=== PATIENT | female | born 1995 | race Two or more races ===

== ENCOUNTER 2024-05-18 21:22 | Emergency (ER) | payer OTHER ==
[~2024-05-18] VITALS: Ht 157.5 cm; Wt 57.2 kg
[2024-05-18] MEDS ORDERED: PRENATA CHEWAB1 EACH PO (21:31)
[2024-05-18] MEDS ORDERED: CHILDREN'S ASPI81 MG PO (21:31)
[2024-05-18 21:33] VITALS: BP 115/75; O2SAT 98
[2024-05-18] MEDS ORDERED: CEFTRIAXONE SODIUM 1,000 MG VIAL IM ONE (23:45)
[2024-05-19] MEDS ORDERED: AMOX-CLAV 875-1 EACH PO (00:12)
[2024-05-19] MEDS ORDERED: LIDOCAINE HCL 1% 10ML VIAL ONE (00:18)
== END 2024-05-19 00:29 | disposition home or self-care (01) ==
LOC: ER 21:24
DX: O26.891 Other specified pregnancy related conditions, first trimester (principal); Z3A.01 Less than 8 weeks gestation of pregnancy; S90.811A Abrasion, right foot, initial encounter; W54.0XXA Bitten by dog, initial encounter; Y93.89 Activity, other specified; Y92.89 Other specified places as the place of occurrence of the external cause

== ENCOUNTER 2024-09-28 11:12 | Outpatient (CLI) | payer OTHER ==
[~2024-09-28 11:12] MED LIST: AMOX-CLAV 875-1 EACH PO; CHILDREN'S ASPI81 MG PO; PRENATA CHEWAB1 EACH PO
[2024-09-28 11:31] VITALS: BP 96/60
[2024-09-28] MEDS ORDERED: RINGERS SOLUTION,LACTATED 1,000 ML IV SCH (12:00)
[2024-09-28] MEDS ORDERED: hydrOXYzine PAMOATE 50 MG CAPSULE PO PRN (12:30)
[2024-09-28 12:52] LABS: BASO % 0.7 % (0.1-1.2); EOS # 0.07 (0.04-0.54); HEMATOCRIT 27.8 % (34.1-44.9); HEMOGLOBIN 9.2 g/dL (11.2-15.7); LYMPH # 1.14 (1.18-3.74); LYMPH % 15.9 % (19.3-53.1); MEAN CORPUSCULAR HEMOGLOBIN 28.6 pg (25.6-32.2); MONO # 0.45 (0.24-0.82); MONO % 6.3 % (4.7-12.5); NEUT # 5.41 (1.56-6.13); NEUT % 75.1 % (34.0-71.1); PLATELET COUNT 290 K/uL (163-369); RED BLOOD COUNT 3.22 M/uL (3.93-5.22); RED CELL DISTRIBUTION WIDTH 12.3 % (11.6-14.4)
[2024-09-28 13:59] LABS: ALBUMIN 2.4 gm/dL (3.4-5.0); BILIRUBIN TOTAL 0.57 mg/dL (0.3-1.2); CALCIUM 8.3 mg/dL (8.5-10.1); CREATININE SERUM 0.4 mg/dL (0.55-1.02); GFR 186.17; GLOBULINA 3.8 G/DL (2.4-3.5); POTASSIUM 3.84 mEq/L (3.5-5.1); TOTAL PROTEIN 6.2 gm/dL (6.4-8.2)
[2024-09-28 15:25] VITALS: BP 94/57
[2024-09-28 19:40] VITALS: BP 102/62
[2024-09-28 23:26] VITALS: BP 92/60
[2024-09-29 03:08] VITALS: BP 95/56
[2024-09-29 06:27] VITALS: BP 92/59; O2SAT 98
[2024-09-29] MEDS ORDERED: HYDROXYZINE PAM50 MG PO (08:42)
[2024-09-29] MEDS ORDERED: FERROUS SULFAT325 MG PO (08:42)
[2024-09-29 09:36] VITALS: BP 92/59
== END 2024-09-29 10:33 | disposition home or self-care (01) ==
LOC: OBS/DEL 11:12
PROVIDERS: ATTEND Specialist
DX: O26.893 Other specified pregnancy related conditions, third trimester (principal); O26.643 Intrahepatic cholestasis of pregnancy, third trimester; Z3A.29 29 weeks gestation of pregnancy

== ENCOUNTER 2024-11-14 10:12 | Outpatient (CLI) | payer OTHER ==
[~2024-11-14 10:12] MED LIST changes: +FERROUS SULFAT325 MG PO; +HYDROXYZINE PAM50 MG PO
== END 2024-11-14 11:19 | disposition home or self-care (01) ==
LOC: NST 10:12
PROVIDERS: ATTEND Specialist
DX: Z34.83 Encounter for supervision of other normal pregnancy, third trimester (principal)

== ENCOUNTER 2024-11-21 08:05 | Outpatient (CLI) | payer OTHER | END 2024-11-21 09:16 | disposition home or self-care (01) | LOC: NST 08:05 | PROVIDERS: ATTEND Specialist | DX: Z34.83 Encounter for supervision of other normal pregnancy, third trimester (principal) ==

== ENCOUNTER 2024-11-30 05:22 | Inpatient (IN) | payer OTHER ==
[~2024-11-30] VITALS: Ht 157.5 cm; Wt 67.1 kg
[2024-11-30] VITALS (10 sets, daily range): BP systolic 104–122; BP diastolic 55–70
[2024-11-30] MEDS ORDERED: RINGERS SOLUTION,LACTATED 1,000 ML IV SCH (06:00)
[2024-11-30] MEDS ORDERED: RELTONE200 MG PO (06:38)
[2024-11-30 06:47] LABS: BASO % 0.6 % (0.1-1.2); EOS # 0.16 (0.04-0.54); EOS % 2.3 % (0.7-7.0); LYMPH # 1.36 (1.18-3.74); LYMPH % 19.7 % (19.3-53.1); MEAN PLATELET VOLUME 10.90 fl (9.4-12.4); MONO # 0.58 (0.24-0.82); MONO % 8.4 % (4.7-12.5); NEUT # 4.69 (1.56-6.13); NEUT % 68.0 % (34.0-71.1); RED CELL DISTRIBUTION WIDTH 14.2 % (11.6-14.4)
[2024-11-30 07:13] LABS: INR 1.15
[2024-11-30 07:42] LABS: ALT/SGPT 119.0 U/L (12-78); AST/SGOT 85.0 U/L (15-37); BILIRUBIN TOTAL 0.69 mg/dL (0.3-1.2); BUN CREA RATIO 19.0 (7.0-25.0); CREATININE SERUM 0.58 mg/dL (0.55-1.02); GFR 121.25; GLOBULINA 3.6 G/DL (2.4-3.5); GLUCOSE FASTING 84.0 mg/dL (65-100); OSMOLALITY SERUM 276.0 MOSM/KG (275-295)
[2024-11-30] MEDS ORDERED: OXYTOCIN 500 ML IV SCH (07:45)
[2024-11-30 10:13] LABS: URINE APPEARANCE Clear; URINE BILIRRUBIN Negative (NEGATIVE); URINE BLOOD Negative; URINE COLOR Yellow; URINE GLUCOSE Negative (NEGATIVE); URINE LEUKOCYTE Negative; URINE NITRATE Negative; URINE PROTEIN Negative (NEGATIVE); URINE UROBILINOGEN 1.0 E.U./dl
[2024-11-30 10:20] LABS: URINE BACTERIA 55.1 uL (0.0-1933); URINE CAST 0.00 uL (0.0-1.40); URINE EPITHELIAL CELLS 6.6 uL (0.0-38.8); URINE KETONE 40 (NEGATIVE); URINE RBC 3.5 uL (0.0-20.8); URINE WBC 1.8 uL (0.0-23.2)
[2024-11-30] MEDS ORDERED: MORPHINE SULFATE 4 MG/ML CARTRIDGE IV ONE ×2 (14:00→16:15)
[2024-11-30] MEDS ORDERED: ACETAMINOPHEN 500 MG GEL..CAP PO PRN (18:30)
[2024-11-30] MEDS ORDERED: CHLORHEXIDINE GLUCONATE 120 ML BOTTLE TOP ONE (18:30)
[2024-11-30] MEDS ORDERED: ERYTHROMYCIN BASE OPHT 1GM EACH TUBE OP ONE (18:30)
[2024-11-30] MEDS ORDERED: CEFAZOLIN SODIUM 1,000 MG VIAL IV SCH (18:30)
[2024-12-01] VITALS: BP 91/55
[2024-12-01 00:51] LABS: BASO % 0.2 % (0.1-1.2); EOS # 0.01 (0.04-0.54); EOS % 0.1 % (0.7-7.0); LYMPH # 0.97 (1.18-3.74); LYMPH % 5.8 % (19.3-53.1); MEAN PLATELET VOLUME 11.00 fl (9.4-12.4); MONO # 0.96 (0.24-0.82); MONO % 5.8 % (4.7-12.5); NEUT # 14.55 (1.56-6.13); NEUT % 87.4 % (34.0-71.1); RED CELL DISTRIBUTION WIDTH 14.0 % (11.6-14.4)
[2024-12-01 08:00] VITALS: BP 94/59
[2024-12-01] MEDS ORDERED: BENZOCAINE/MENTHOL 90 ML BOTTLE TOP SCH (09:00)
[2024-12-01] MEDS ORDERED: CEFAZOLIN SODIUM 1,000 MG VIAL IV ONE (12:00)
[2024-12-01] MEDS ORDERED: HYDROCORTISONE 2.5% 30 GM TUBE RECTAL SCH ×2 (13:00→17:00)
[2024-12-01] MEDS ORDERED: MORPHINE SULFATE 4 MG/ML VIAL IV ONE (13:15)
[2024-12-01 14:15] VITALS: BP 93/58
[2024-12-01 16:00] VITALS: BP 96/57
[2024-12-01 23:43] VITALS: BP 103/65
[2024-12-02 08:00] VITALS: BP 114/64
== END 2024-12-02 13:23 | disposition home or self-care (01) | DRG 797 ==
LOC: LDR → OB/GYN 05:22
PROVIDERS: ADMIT Specialist; ATTEND Specialist
PROC: 10E0XZZ Delivery of Products of Conception, External Approach (ICD-10-PCS; principal; 2024-11-30)
PROC: 3E033VJ Introduction of Other Hormone into Peripheral Vein, Percutaneous Approach (ICD-10-PCS; 2024-11-30)
PROC: 4A1HXCZ Monitoring of Products of Conception, Cardiac Rate, External Approach (ICD-10-PCS; 2024-11-30)
PROC: 0UB70ZZ Excision of Bilateral Fallopian Tubes, Open Approach (ICD-10-PCS; 2024-12-01)
DX: O99.02 Anemia complicating childbirth (principal); O26.643 Intrahepatic cholestasis of pregnancy, third trimester; Z37.0 Single live birth; D64.9 Anemia, unspecified; K76.89 Other specified diseases of liver; Z3A.37 37 weeks gestation of pregnancy; Z30.2 Encounter for sterilization